=== PATIENT | male | born 1970 | race Caucasian/White ===

== ENCOUNTER → 2018-04-21 17:27 | Outpatient (CLI) | payer SELFPAY ==
[2018-04-30 13:44] LABS: Ca Oxalate, Dihydrate 65 % (.); Ca Oxalate, Monohydrate 25 % (.); Calcium Phosphate 10 % (.)
== END ==
PROVIDERS: Visit Provider Nurse Practitioner Adult Health
DX: N20.0 Calculus of kidney (principal)
CPT/HCPCS: 82360

== ENCOUNTER 2019-04-26 19:45 | Emergency (ER) | payer OTHER, SELFPAY ==
[2019-04-26 19:46] VITALS: BP 137/89; PULSE 76; RESP 16; TEMP 36.8; O2SAT 97; BMI 25.7
--- NOTE | 2019-04-26 19:58 | ED.DCSUM_ITS ---
- ER Visit Summary Date of Service: 04/26/19 Chief Complaint: Head injury History of Present Illness: The patient is a 49 M who struck the vertex of the scalp on the metal garage door frame. He notes a laceration. No loss of conscious no nausea vomiting. No last tetanus. Physical Examination: Afebrile vital signs are stable Gen: Well-nourished well-developed Head: Normocephalic there is a 3 cm linear scalp laceration that is gaping. Bleeding controlled. Is located at the vertex of the scalp. No bony depression. No evidence of skull fracture. Eyes: Perrl EOMI ENT: TMs clear no rhinorrhea moist mucous membranes Neck: Supple no lymphadenopathy no JVD nontender CVS: Regular rate rhythm no murmurs normal S1-S2 Respiratory: No distress clear to auscultation bilaterally chest nontender Abdomen: Soft nontender nondistended normal bowel sounds no masses Back: Nontender Extremity: Nontender no edema Skin: Normal color no rash Neuro: alert orientated ?3 CN II-XII intact normal strength sensation reflexes gait cerebellar Psych: Normal affect normal mood Emergency Department Course and Treatment: Wound was locally anesthetized using 1% lidocaine with epinephrine. Was washed with Shur-Clens and explored. A total of 5 simple interrupted 4-0 sutures were applied. Wound edges well approximated. Wound care discussed with patient. Tetanus was updated with Adacel. Stitches will need to be removed in 5 to 7 days. [] Impression: 1. 3 cm scalp laceration with. 2. Tetanus update This note was generated with [employer] dictation software. It may contain incorrect words, spelling, and punctuation that were not noted in review of the chart prior to signing ED Disposition - Plan for ED Patient: Disposition: Home or Assisted Living Instructions: LACERATION, Scalp Referrals: Dominick Marquez MD [Primary Care Provider] - 5-7 Days (for suture removal)
[2019-04-26] MEDS: Diphth,Pertuss(Acell),Tet Vac 0.5 ML Vial IM (20:01)
[2019-04-26 20:44] VITALS: PULSE 72; O2SAT 98
== END 2019-04-26 20:47 | disposition home or self-care (01) ==
LOC: ED 20:38
PROVIDERS: Emergency Provider Emergency Medicine; Family Provider Family Medicine; PCP Family Medicine
DX: S01.01XA Laceration without foreign body of scalp, initial encounter (principal); R40.2410 Glasgow coma scale score 13-15, unspecified time; W22.8XXA Striking against or struck by other objects, initial encounter; Y93.9 Activity, unspecified; Y92.9 Unspecified place or not applicable; Z23 Encounter for immunization
CPT/HCPCS: 12002; 90471; 90715; 99283

== ENCOUNTER → 2025-01-11 07:59 | Outpatient (REF) | payer SELFPAY | LOC: CVS 07:59 | PROVIDERS: PCP Family Medicine | DX: Z13.0 Encounter for screening for diseases of the blood and blood-forming organs and certain disorders involving the immune mechanism (principal) ==

== ENCOUNTER 2025-02-17 07:52 | Day surgery (SDC) | payer BC, SELFPAY ==
[2025-02-17] VITALS (8 sets, daily range): BP systolic 96–136; BP diastolic 72–83; PULSE 68–79; RESP 16–18; TEMP 36.4–37.1; O2SAT 93–100; BMI 25.2
--- NOTE | 2025-02-17 08:40 | PRE.ANES_ITS ---
ASA Classification* ASA Classification ASA Classification: 2 Assessment & Plan Anesthesia* Anesthesia Assessment Anesthesia Assessment: Discussed sedation and/or anesthesia options, risks, benefits, and alternatives with patient/parents/legal guardian/POA. Questions invited. The patient/parents/legal guardian/POA seems to understand and agrees to proceed with anesthesia plan. Reviewed the physical assessment, medical history, allergy history and patient home medications list prior to surgery/procedure/anesthetic and documented any changes. Performed airway and anesthesia risk assessments. Anesthesia Type Anesthesia Type: MAC Anesthesia Focused Assessment* Temperature: 98 F Pulse Rate: 79 Blood Pressure: 136/79 Respiratory Rate: 18 Pulse Ox: 100 Airway Assessment Mouth opens: >3 cm Mallampati Score: II Focused Labs Anesthesia Preop lab: CBC WBC 5.7 K/mm3 (4.4-11.0) 12/14/16 08:24 12/14/16 RBC 4.87 M/mm3 (4.6-6.2) 12/14/16 08:24 12/14/16 Hgb 14.8 g/dl (13.0-16.5) 12/14/16 08:24 12/14/16 Hct 42.9 % (40-54) 12/14/16 08:24 12/14/16 Plt Count 281 K/mm3 (150-450) 12/14/16 08:24 12/14/16 CHEMISTRY Potassium 4.0 mmol/L (3.5-5.1) 12/14/16 08:24 12/14/16 Sodium 137 mmol/L (136-145) 12/14/16 08:24 12/14/16 BUN 15 mg/dL (7-18) 12/14/16 08:24 12/14/16 Creatinine 0.91 mg/dL (0.70-1.30) 12/14/16 08:24 12/14/16 Glucose 92 mg/dL (70-110) 12/14/16 08:24 12/14/16 COAG Pre-Assessment Diagnosis/Proposed Procedure Planned Operative Procedure(s): COLONOSCOPY Anesthesia History Anesthesia History - director acute: Anesthesia History - director acute Hx Hospitalization No 02/15/25 10:13 Any Problems With Anesthesia No 02/15/25 10:13 Cholinesterase deficiency No 02/15/25 10:13 You/Your Family Experience No 02/15/25 10:13 fever (hyperthermia) with Relationship Recent Exposure to Contagious No 02/17/25 08:07 Disease Does patient have nerve No 02/15/25 10:13 stimulator Patient instructed to have device shut off --Does patient have Pacemaker No 02/17/25 08:07 or ICD? When Was Last Pacemaker Check QUESTION #4 FULL TEXT: You/Your Family Experience fever (hyperthermia) with Anesthesia Last Oral Intake Last Oral intake: Last Oral Intake NPO since 05:00 02/17/25 08:07 Meds taken in AM with sips of No 02/17/25 08:07 water? Meds patient instructed to take am of surgery PONV PONV - director acute: PONV - director acute Female No 02/15/25 10:13 HX of Motion Sickness No 02/15/25 10:13 HX of N/V After Surgery No 02/15/25 10:13 Non-Smoker Yes 02/15/25 10:13 Duration of Surgery greater No 02/15/25 10:13 than 60 minutes Number of Risk Factors 1 02/15/25 10:13 PONV Score Low Risk 02/15/25 10:13 Height & Weight Height & Weight: Anesthesia: Height & Weight Height 5 ft 10 in 02/17/25 08:07 Weight: 80 kg 02/17/25 08:07 Body Mass Index (BMI) 25.2 02/17/25 08:07 Respiratory Assessment Respiratory Assessment - director acute: Respiratory Tract Infection Hx - director acute Hx Respiratory Tract Infection No 02/15/25 10:13 STOP Sleep Apnea STOP Sleep Apnea - director acute: STOP Sleep Apnea - director acute Hx Hypertension No 02/15/25 10:13 Hx Sleep Apnea No 02/15/25 10:13 CPAP BIPAP Do you snore loudly (louder Yes 02/15/25 10:13 than talking or can be heard Do you often feel tired/ No 02/15/25 10:13 fatigued/ sleepy during daytime? Has anyone observed you stop No 02/15/25 10:13 breathing during sleep? STOP Results Negative 02/15/25 10:13 QUESTION #5 FULL TEXT : Do you snore loudly (louder than talking or can be heard through closed doors)? Tobacco Use History Tobacco Use History - director acute: Tobacco Use History - director acute Tobacco Use Smoking Status Never smoker 02/15/25 10:13 Hx Tobacco Use No 02/15/25 10:13 Years Smoking Packs Smoked per Day Smoking Cessation Date was within the last 15 years Hx Smoking Cessation Date Hx Smoking Cessation Counseling Hematologic Medial History Hematologic Hx - director acute: Hematologic Medical Hx - dock hand Hx of Blood Transfusion No 02/15/25 10:13 Hx of Transfusion in last 3 No 02/15/25 10:13 Months Date of Last Transfusion (if within last 3 months) Ever experience any problems No 02/15/25 10:13 with transfusion(s)? Specify any problems Hx of Preganancy in last 3 N/A 02/15/25 10:13 Months Nurse Filling Out Transfusion MGRIFFITH 02/15/25 10:13 & Questions: Date: 02/15/25 02/15/25 10:13 Time: 10:15 02/15/25 10:13 Patient unable to answer at this time (ie. confused, unrespo /Reproduction History /Reproductive History - director acute: /Reproductive Hx- director acute Hx Now Gestational Age (in weeks): EDC: Hx Hx Para Hx Section SAB PFSH Medical History Wears glasses Depression Alcohol use Prostate disease History of kidney stones Heartburn Non-smoker Home Medications ?Medication ?Instructions ?Recorded ?Last Taken ?Type desvenlafaxine succinate 50 mg 50 mg PO DAILY 04/26/19 02/15/25 History tablet,extended release 24 hr aspirin 81 mg tablet,delayed 81 mg PO QDAY 12/16/24 History release (Adult Low Dose Aspirin) niacin 50 mg tablet 50 mg PO QDAY 12/16/2401/18 History omega-3 360 pq-zga-wkg-fish oil 1 cap PO QDAY 12/16/24 01/18/25 History 1,200 mg capsule,delayed release (Fish Oil) tamsulosin 0.4 mg capsule 0.4 mg PO QDAY 12/16/2402/02 History turmeric 400 mg capsule 400 mg PO QDAY 12/16/2401/02 History calcium carbonate (Tums) 200 mg PO DAILY PRN dyspepsi a 04/14/25 04/13/25 History Allergy/AdvReac Type Severity Reaction Status Date / Time No Known Allergies Allergy Verified 02/17/25 08:06 Family History Mother Colon polyps Surgical History History of wisdom tooth extraction Social History household members: spouse current occupational status: unemployed Smoking Status: Never smoker substance use type: does not use Review of Systems (Anesthesia) ROS Narrative System reviewed and no additional complaints, except as documented.
--- NOTE | 2025-02-17 09:00 | PCM.HP.STD ---
[facility] - General General Date of Admission: 02/17/25 Date of Service: 02/17/25 Chief Complaint: Screening colonoscopy HPI Narrative GAMA ARMSTRONG, is a 55 M who presents today for screening colonoscopy. He is never had a colonoscopy in the past. [facility] Medical History Wears glasses Depression Alcohol use Prostate disease History of kidney stones Heartburn Non-smoker Home Medications ?Medication ?Instructions ?Recorded ?Last Taken ?Type desvenlafaxine succinate 50 mg 50 mg PO DAILY 04/26/19 02/15/25 History tablet,extended release 24 hr aspirin 81 mg tablet,delayed 81 mg PO QDAY 12/16/24 01/18/25 History release (Adult Low Dose Aspirin) niacin 50 mg tablet 50 mg PO QDAY 12/16/24 01/18/25 History omega-3 360 ow-ibc-qdt-fish oil 1 cap PO QDAY 12/16/24 01/18/25 History 1,200 mg capsule,delayed release (Fish Oil) tamsulosin 0.4 mg capsule 0.4 mg PO QDAY 12/16/24 02/15/25 History turmeric 400 mg capsule 400 mg PO QDAY 12/16/24 01/18/25 History calcium carbonate (Tums) 200 mg PO DAILY PRN dyspepsia 02/15/25 02/14/25 History Allergy/AdvReac Type Severity Reaction Status Date / Time No Known Allergies Allergy Verified 02/17/25 08:06 Family History Mother Colon polyps Surgical History History of wisdom tooth extraction Social History household members: spouse current occupational status: unemployed Smoking Status: Never smoker substance use type: does not use ROS Constitutional Constitutional: Denies fatigue, fever(s), poor appetite, weight gain or weight loss Gastrointestinal Gastrointestinal: Denies belching, bloating, change in bowel habits, change in stool character, chewing difficulty, coffee ground emesis, constipation, cramping, diarrhea, dyspepsia, dysphagia, early satiety, excessive flatus, fecal incontinence, heartburn, hematemesis, hematochezia, hemorrhoids, loose stools, melena, nausea, odynophagia, rectal bleeding, tenesmus, vomiting or weight changes Vital Signs Vital Signs Vital Signs: 02/17/25 08:07 02/17/25 08:07 02/17/25 08:40 Temperature 98 F 98 F Temperature Source Temporal Pulse Rate 79 79 Respiratory Rate 18 18 Respiratory Pattern Normal Blood Pressure 136/79 H 136/79 H Blood Pressure Mean 98 Blood Pressure Source Monitor Blood Pressure Position Sitting Blood Pressure Location Right Arm Pulse Ox 100 100 Oxygen Delivery Method Room Air Weight Weight: 176 lb 5.917 oz Body Mass Index (BMI) 25.2 Physical Exam Const alert, oriented x3, no apparent distress and healthy appearing General Appearance: cooperative GI normal to inspection, nondistended, normoactive bowel sounds, soft to palpation, non-tender and non-distended Percussion: normal to percussion Rectal Exam: deferred Assessment & Plan Assessment/Plan (1) Encounter for screening for malignant neoplasm of colon: PLAN: Patient was explained alternatives, risk and benefits including it was any bleeding, charge, steps, perforation, need for more charge and . He will have an ASA of 3.
--- NOTE | 2025-02-17 10:02 | OP.CCLET_ITS ---
02/17/2025 Dominick Marquez Re : Colonoscopy procedure for Andrew Madrid Dear Jimmy This procedure was performed on Monday, February 17, 2025. My impressions and recommendations are as follows: Impressions : - Diverticulosis in the sigmoid colon. - The examination was otherwise normal on direct and retroflexion views. - No specimens collected. Recommendations : - Discharge patient to home. - Resume previous diet. - Continue present medications. - Repeat colonoscopy in 10 years for screening purposes. My findings are described in the full procedure note, which is enclosed. If I can be of further assistance, please feel free to contact me at . Sincerely, Codey Busch, 02/17/2025 10:01:39 AM This report has been signed electronically.
--- NOTE | 2025-02-17 10:02 | OP.COLON_ITS ---
Patient Name: Andrew Madrid Procedure Date: 02/17/2025 9:34 AM Date of : 1970 Age: 55 Procedure: Colonoscopy Indications: Screening for colorectal malignant neoplasm Providers: Codey Busch DO Referring MD: Codey Busch DO Medicines: Monitored Anesthesia Care Patient Profile: This is a 55 year old male. Refer to note in patient chart for documentation of history and physical. Last Colonoscopy: none. The patient's first colonoscopy is today. Complications: No immediate complications. Procedure: Pre-Anesthesia Assessment: - Prior to the procedure, a History and Physical was performed, and patient medications and allergies were reviewed. The patient is competent. The risks and benefits of the procedure and the sedation options and risks were discussed with the patient. All questions were answered and informed consent was obtained. Patient identification and proposed procedure were verified by the physician in the pre-procedure area. Mental Status Examination: alert and oriented. Airway Examination: normal oropharyngeal airway and neck mobility. Respiratory Examination: clear to auscultation. CV Examination: normal. Prophylactic Antibiotics: The patient does not require prophylactic antibiotics. Prior Anticoagulants: The patient has taken no anticoagulant or antiplatelet agents. ASA Grade Assessment: II - A patient with mild systemic disease. After reviewing the risks and benefits, the patient was deemed in satisfactory condition to undergo the procedure. The anesthesia plan was to use monitored anesthesia care (MAC). Immediately prior to administration of medications, the patient was re-assessed for adequacy to receive sedatives. The heart rate, respiratory rate, oxygen saturations, blood pressure, adequacy of pulmonary ventilation, and response to care were monitored throughout the procedure. The physical status of the patient was re-assessed after the procedure. After I obtained informed consent, the scope was passed under direct vision. Throughout the procedure, the patient's blood pressure, pulse, and oxygen saturations were monitored continuously. The Colonoscope was introduced through the anus and advanced to the cecum, identified by appendiceal orifice and ileocecal valve. The colonoscopy was performed without difficulty. The patient tolerated the procedure well. The quality of the bowel preparation was adequate. The terminal ileum, ileocecal valve, appendiceal orifice, and rectum were photographed. Scope In: 9:42:50 AM Scope Withdrawal Time 0 hours 9 minutes 8 seconds Scope Out: 9:57:16 AM Total Procedure Duration Time 0 hours 14 minutes 26 seconds Findings: The perianal and digital rectal examinations were normal. A few small-mouthed diverticula were found in the sigmoid colon. The exam was otherwise without abnormality on direct and retroflexion views. Impression: - Diverticulosis in the sigmoid colon. - The examination was otherwise normal on direct and retroflexion views. - No specimens collected. Recommendation: - Discharge patient to home. - Resume previous diet. - Continue present medications. - Repeat colonoscopy in 10 years for screening purposes. Procedure Code(s): --- Professional --- G0121, Colorectal cancer screening; colonoscopy on individual not meeting criteria for high risk CPT copyright 2021 [employer] [place] [employer] [employer]. All rights reserved. The codes documented in this report are preliminary and upon regulatory law specialist review may be revised to meet current compliance requirements. Codey Busch DO 02/17/2025 10:01:39 AM This report has been signed electronically. Number of Addenda: 0 Note Initiated On: 02/17/2025 9:34 AM
--- NOTE | 2025-02-17 10:07 | PCM.POST.ANE ---
Anesthesia: Postop Eval I Current Vital Signs Temperature: 97.6 F Pulse Rate: 76 Blood Pressure: 103/72 Respiratory Rate: 16 Pulse Ox: 93 Oxygen Delivery Method: Room Air Assessment Airway patent: Yes Spontaneous unlabored respirations: Yes Mental status: Asleep nausea: No Vomiting: No Anesthesia Complication: No Fluid Hydration Crystalloid volume administer (ml): 40 Total IV fluid infused: 40 Progress Note Anesthesia document: Postop Eval 1 completed: Yes
--- NOTE | 2025-02-17 11:10 | PCM.POSTANE2 ---
Anesthesia Postop Eval I Sum Postop Eval Completion status Anesthesia document: Postop Eval 1 completed: Yes Anesthesia Postop Eval I Summary Anesthesia Postop Eval I Summary: Anesthesia Postop Eval I: Assessment Summary Airway patent Yes 02/17/25 10:08 [email or web address] Spontaneous unlabored Yes 02/17/25 10:08 [email or web address] respirations Mental status Asleep 02/17/25 10:08 [email or web address] nausea No 02/17/25 10:08 [email or web address] Vomiting No 02/17/25 10:08 [email or web address] Anesthesia Postop Eval I: Fluid Summary Crystalloid volume administer 40 02/17/25 10:08 [email or web address] (ml) Colloids volume administered ( ml) Blood Product volume administered (ml) Total IV fluid infused 40 02/17/25 10:08 [email or web address] Anesthesia Postop Eval I: Summary Notes Anesthesia Complication No 02/17/25 10:08 [email or web address] Anesthesia Complication Comment: Post-operative progress note Anesthesia: Postop Eval II Evaluation Mental status: Awake Pain Level: 0 nausea: No Vomiting: No
== END 2025-02-17 10:40 | disposition home or self-care (01) ==
LOC: EN 07:54 → AC 07:56
PROVIDERS: PCP Family Medicine; Referring Provider Family Medicine; Visit Provider Internal Medicine Gastroenterology
PROC: 0DJD8ZZ Inspection of Lower Intestinal Tract, Via Natural or Artificial Opening Endoscopic (ICD-10-PCS; CPT 45378; principal; 2025-02-17 08:55)
DX: Z12.11 Encounter for screening for malignant neoplasm of colon (principal); K57.30 Diverticulosis of large intestine without perforation or abscess without bleeding; F32.A Depression, unspecified; Z79.899 Other long term (current) drug therapy
CPT/HCPCS: 45378; A4216; J2405